=== PATIENT | female | born 1960 | race Caucasian/White ===

== ENCOUNTER 2017-11-15 09:57 | Emergency (ER) | payer MEDICARE, MEDICAID ==
[~2017-11-15] VITALS: Ht 160 cm; Wt 47.0 kg
[~2017-11-15 09:57] MED LIST: ACET325T55 PO; ALBU6.7H INH; NITR100C6 PO
[2017-11-15] MEDS ORDERED: ketorolac trometh inj. 60 MG/2 ML VIAL IM ONE (11:30)
[2017-11-15] MEDS ORDERED: CYCL-1 PO (11:39)
[2017-11-15 11:47] VITALS: BP 100/62
== END 2017-11-15 11:50 | disposition home or self-care (01) ==
LOC: ER 09:58
DX: S33.5XXA Sprain of ligaments of lumbar spine, initial encounter (principal); G89.29 Other chronic pain; F17.200 Nicotine dependence, unspecified, uncomplicated; Z60.2 Problems related to living alone; Z98.51 Tubal ligation status; Z88.2 Allergy status to sulfonamides; Z88.5 Allergy status to narcotic agent; Z88.6 Allergy status to analgesic agent; Z79.899 Other long term (current) drug therapy; W01.0XXA Fall on same level from slipping, tripping and stumbling without subsequent striking against object, initial encounter; Y93.89 Activity, other specified; Y92.89 Other specified places as the place of occurrence of the external cause; Y99.8 Other external cause status
CPT/HCPCS: 96372; 99284; J1885

== ENCOUNTER 2017-11-18 14:14 | Emergency (ER) | payer MEDICARE, MEDICAID ==
[~2017-11-18] VITALS: Ht 160 cm; Wt 53.0 kg
[~2017-11-18 14:14] MED LIST changes: +CYCL-1 PO
[2017-11-18] MEDS ORDERED: pantoprazole 40mg Tablet.DR PO ONE (14:50)
[2017-11-18] MEDS ORDERED: ketorolac trometh. 30mg/ml inj. IM ONE (14:50)
[2017-11-18 15:11] VITALS: BP 125/75
== END 2017-11-18 15:12 | disposition home or self-care (01) ==
LOC: ER 14:14
DX: G89.29 Other chronic pain (principal); M54.5 Low back pain; F17.200 Nicotine dependence, unspecified, uncomplicated; Z98.51 Tubal ligation status; Z60.2 Problems related to living alone; Z88.2 Allergy status to sulfonamides; Z88.5 Allergy status to narcotic agent; Z88.6 Allergy status to analgesic agent; Z79.899 Other long term (current) drug therapy
CPT/HCPCS: 96372; 99284; J1885

== ENCOUNTER 2017-11-24 19:31 | Emergency (ER) | payer MEDICARE, MEDICAID ==
[~2017-11-24] VITALS: Ht 160 cm; Wt 52.0 kg
[2017-11-24 20:24] VITALS: BP 113/67
[2017-11-25] MEDS ORDERED: PERM60CR19 TP (12:53)
== END 2017-11-24 22:53 | disposition left against medical advice (07) ==
LOC: ER 19:32
DX: M54.5 Low back pain (principal); Z53.21 Procedure and treatment not carried out due to patient leaving prior to being seen by health care provider

== ENCOUNTER 2017-11-25 12:00 | Emergency (ER) | payer MEDICARE, MEDICAID ==
[~2017-11-25] VITALS: Ht 162.6 cm; Wt 52.5 kg
[2017-11-25 12:12] VITALS: BP 106/61
[2017-11-25] MEDS ORDERED: PERM60CR19 TP (12:53)
== END 2017-11-25 13:05 | disposition home or self-care (01) ==
LOC: ER 12:01
DX: R21 Rash and other nonspecific skin eruption (principal); G89.29 Other chronic pain; Z98.51 Tubal ligation status; Z59.0 Homelessness; Z56.0 Unemployment, unspecified; Z88.2 Allergy status to sulfonamides; Z88.5 Allergy status to narcotic agent; Z88.6 Allergy status to analgesic agent
CPT/HCPCS: 99282